=== PATIENT | male | born 1995 | race Caucasian/White ===

== ENCOUNTER → 2018-04-29 | Outpatient (CLI) | payer OTHER ==
--- NOTE | 2018-05-02 13:26 | PCVCIMAG ---
APPROVED REPORT Study performed: 04/29/2018 09:59:23 EXAM: Comprehensive 2D, Doppler, and color-flow Echocardiogram Patient Location: Echo lab Status: routine BSA: 2.29 HR: 54 bpmBP: 122/76 mmHg Rhythm: NSR Other Information Study Quality: Adequate Indications Murmur Bicuspid aortic valve, anterior mitral valve prolapse 2D Dimensions LVEF(%): 50.46 (>50%) IVSd: 10.06 (7-11mm)LVOT Diam: 21.63 (18-24mm) LVDd: 49.91 mm PWd: 11.22 (7-11mm) LVDs: 37.06 (25-40mm) Left Atrium: 38.61 (27-40mm) Aortic Root: 28.62 mm LV Single Plane 4CH: 58.72 % LV Single Plane 2CH: 65.78 %Rose's LVEF: 62.25 % Biplane EF: 62.3 % Volumes Left Atrial Volume (Systole) Single Plane 4CH: 55.30 mLSingle Plane 2CH: 68.40 mL LA ESV Index: 28.00 mL/m2 Aortic Valve AoV Peak Mathew.: 2.26 m/s AO Peak Gr.: 19.74 mmHgLVOT Max P.64 mmHg AO Mean Gr.: 10.76 mmHgLVOT Mean P.19 mmHg AO V2 Mean: 1.55 m/sLVOT Max V: 1.17 m/s AO V2 VTI: 50.40 cmLVOT Mean V: 0.85 m/s OBINNA (VTI): 1.88 [id number] V1 VTI: 25.86 cm OBINNA Vmax: 1.90 cm2 AI Vmax: 4.72 m/sSV (LVOT): 95.00 mL AI Beauregard: 2.71 m/s2 AI PHT: 505.17 ms Mitral Valve E/A Ratio: 2.2 MV Decel. Time: 226.19 ms MV E Max Mathew.: 0.81 m/s MV A Mathew.: 0.37 m/s IVRT: 83.04 ms Pulmonary Valve PV Peak Mathew.: 1.08 m/sPV Peak Gr.: 4.65 mmHg Pulmonary Vein P Vein S: 0.34 m/sP Vein A: 0.35 m/s P Vein D: 0.72 m/sP Vein A Dur.: 128.0 msec P Vein S/D Ratio: 0.47 Tricuspid Valve TR Peak Mathew.: 2.41 m/s TR Peak Gr.: 23.25 mmHg Left Ventricle The left ventricle is normal size. There is normal LV segmental wall motion. There is normal left ventricular wall thickness. Left ventricular systolic function is normal. The left ventricular ejection fraction is within the normal range. LVEF is 60-65%. The left ventricular diastolic function is normal. Right Ventricle The right ventricle is normal size. The right ventricular systolic function is normal. Atria The left atrium size is normal. The right atrium size is normal. Aortic Valve The aortic valve is bicuspid. Mild to moderate aortic regurgitation. There is no aortic valvular stenosis. Mitral Valve The mitral valve is normal in structure. Mild mitral regurgitation. No evidence of mitral valve stenosis. Tricuspid Valve The tricuspid valve is normal in structure. Mild tricuspid regurgitation with PAP of 30 mmHg. Pulmonic Valve The pulmonary valve is normal in structure. Mild to moderate pulmonic regurgitation. Great Vessels The aortic root is normal in size. IVC is normal in size and collapses with >50% inspiration Pericardium There is no pericardial effusion. There is no pleural effusion. <Conclusion> The left ventricle is normal size. LVEF is 60-65%. The right ventricle is normal size. The left atrium size is normal. The aortic valve is bicuspid. Mild to moderate aortic regurgitation. Mild mitral regurgitation. Mild tricuspid regurgitation with PAP of 30 mmHg. Mild to moderate pulmonic regurgitation. IVC is normal in size and collapses with >50% inspiration There is no pericardial effusion.
== END | disposition home or self-care (01) ==
LOC: PCVCIMAG 11:55
PROVIDERS: ATTEND Internal Medicine Cardiovascular Disease
DX: I08.3 Combined rheumatic disorders of mitral, aortic and tricuspid valves (principal); R01.1 Cardiac murmur, unspecified
CPT/HCPCS: 93306